=== PATIENT | female | born 1955 | race Caucasian/White ===

== ENCOUNTER 2017-06-11 18:12 | Emergency (ER) | payer BC, OTHER ==
[~2017-06-11] VITALS: Ht 152.4 cm; Wt 104.5 kg
[~2017-06-11 18:12] MED LIST: DILAUDID 2MG TAB2 MG PO; HCTZ12.5TAB PO; NEURONTIN300 MG/CAP PO; SYNTHROID 0.10.15 MG PO
[2017-06-11 18:21] VITALS: BP 121/58; PULSE 73; TEMP 97.7
[2017-06-11] MEDS ORDERED: ZYRTEC 10MG10 MG PO (19:05)
[2017-06-11] MEDS ORDERED: DILAUDID 2MG TAB2 MG PO (19:06)
[2017-06-11] MEDS ORDERED: DILAUDID 4MG TAB4 MG PO (19:06)
[2017-06-11] MEDS ORDERED: ZESTORETIC 12.51 TAB PO (19:06)
[2017-06-11] MEDS ORDERED: SYNTHROID0.125 MG/T PO (19:06)
== END 2017-06-11 19:42 | disposition home or self-care (01) ==
LOC: COL.ER 18:12
DX: S70.02XA Contusion of left hip, initial encounter (principal); W22.8XXA Striking against or struck by other objects, initial encounter; Y92.89 Other specified places as the place of occurrence of the external cause; Y99.0 Civilian activity done for income or pay

== ENCOUNTER → 2018-02-05 | Outpatient (CLI) | payer MEDICARE, OTHER ==
[~2018-02-05] MED LIST changes: +DILAUDID 4MG TAB4 MG PO; +SYNTHROID0.125 MG/T PO; +ZESTORETIC 12.51 TAB PO; +ZYRTEC 10MG10 MG PO
== END ==
LOC: MC.RAD 15:46
DX: Z12.31 Encounter for screening mammogram for malignant neoplasm of breast (principal)

== ENCOUNTER → 2019-12-01 | Outpatient (CLI) | payer MEDICARE, OTHER | LOC: MC.RAD 14:16 | DX: Z12.31 Encounter for screening mammogram for malignant neoplasm of breast (principal) ==